=== PATIENT | male | born 1955 | race Caucasian/White ===

== ENCOUNTER 2017-10-04 11:00 | Inpatient (IN) | END 2017-10-12 16:00 | disposition home or self-care (01) | DRG 233 ==

== ENCOUNTER 2019-04-23 19:49 | Inpatient (IN) | payer MEDICARE, BC ==
[~2019-04-23] VITALS: Ht 177.8 cm; Wt 112.5 kg
[~2019-04-23 19:49] MED LIST: ALBU18HF INHALATION; AMIO200T4 PO; AMOX500C2 PO; ASPI-817 PO; ATOR-2 PO; AZIT250T PO; CARV25TA79 PO; CEPH500C PO; DOXA4TAB3 PO; FINA5TAB4 PO; FURO40TA4 PO; LOSA100T15 PO; LOSA25TA12 PO; POTA10TA37 PO; RIVA20TA5 PO; ROSU40TA35 PO; SPIR25TA PO; TORS10TA18 PO
[2019-04-23] MEDS ORDERED: SODIUM CHLORIDE 0.9% 1L BAG IV* STA (20:09)
[2019-04-23] MEDS ORDERED: CEFEPIME 2GM/50 ML (PMX) 50 ML IVPB STA (20:09)
[2019-04-23] MEDS ORDERED: VANCOMYCIN 1 GM (PMX) 250 ML IVPB ONE (20:30)
[2019-04-23] MEDS ORDERED: ACETAMINOPHEN 500 MG TAB PO STA (21:04)
[2019-04-23] MEDS ORDERED: IBUPROFEN 800 MG TAB PO ONE (21:30)
[2019-04-23] MEDS ORDERED: IPRATROPIUM (NEB) 0.5 MG/2.5 ML AMP INH STA (21:35)
[2019-04-23] MEDS ORDERED: ALBUTEROL 0.5% (NEB) 2.5 MG/0.5 ML AMP INH STA (21:35)
[2019-04-23] MEDS ORDERED: SOD CHLORIDE 0.9% 100 ML ONE (21:41)
[2019-04-23] MEDS ORDERED: IODIXANOL LOCM 100 ML BTL ONE (21:41)
[2019-04-23] MEDS ORDERED: FUROSEMIDE 40 MG INJ IV ONE (22:00)
[2019-04-23] MEDS ORDERED: ACETAMINOPHEN 325 MG TAB PO PRN ×2 (22:00→22:30)
[2019-04-23] MEDS ORDERED: ONDANSETRON 4 MG INJ IV PRN ×2 (22:00→22:30)
[2019-04-23] MEDS ORDERED: NACL 0.9% 3 ML SYG IV SCH (22:30)
[2019-04-23] MEDS ORDERED: DOCUSATE SODIUM 100 MG CAP PO PRN (22:30)
[2019-04-23] MEDS ORDERED: BISACODYL (EC) 5 MG TAB PO PRN (22:30)
[2019-04-23] MEDS ORDERED: ZOLPIDEM 5 MG TAB PO PRN (22:30)
[2019-04-23] MEDS ORDERED: NA PHOSPHATE/BIPHOS 133 ML ENEMA PR PRN (22:30)
[2019-04-23] MEDS ORDERED: ALBUTEROL HFA 8 GM INHALER INH PRN (22:30)
[2019-04-23] MEDS: AZITHROMYCIN 500MG/NS (PMX) 250 ML IV SCH (22:30)
[2019-04-24 00:05] VITALS: BP 130/78; PULSE 56; RESP 20; Ht 177.8 cm; Wt 112.5 kg
[2019-04-24] MEDS: CEFTRIAXONE 1 GM/50 ML (PMX) 50 ML IVPB SCH ×2 (02:15→22:28)
[2019-04-24 07:53] VITALS: BP 137/85; PULSE 50; RESP 19
[2019-04-24] MEDS: ASPIRIN (EC) 81 MG TAB PO SCH (08:16)
[2019-04-24] MEDS: POTASSIUM CHLORIDE (SR) 10 MEQ TAB PO SCH ×2 (08:17→22:27)
[2019-04-24] MEDS: FUROSEMIDE 40 MG INJ IV SCH ×3 (08:20→17:47)
[2019-04-24] MEDS: LOSARTAN 50 MG TAB PO SCH (08:20)
[2019-04-24] MEDS: SPIRONOLACTONE 25 MG TAB PO SCH (08:20)
[2019-04-24] MEDS: DOXAZOSIN 4 MG TAB PO SCH ×2 (08:20→22:26)
[2019-04-24] MEDS: ENOXAPARIN 40 MG/0.4 ML SYG SC SCH (08:49)
[2019-04-24 11:14] VITALS: BP 130/80; PULSE 52; RESP 19
[2019-04-24 15:33] VITALS: BP 156/85; PULSE 67; RESP 19
[2019-04-24] MEDS ORDERED: FOSFOMYCIN 3 GM PACKET PO ONE (17:00)
[2019-04-24] MEDS: FINASTERIDE 5 MG TAB PO SCH (17:47)
[2019-04-24 20:44] VITALS: BP 122/66; PULSE 66; RESP 18
[2019-04-24] MEDS: AZITHROMYCIN 500MG/NS (PMX) 250 ML IV SCH (22:27)
[2019-04-24] MEDS: ATORVASTATIN 80 MG TAB PO SCH (22:27)
[2019-04-25] VITALS (7 sets, daily range): BP systolic 120–155; BP diastolic 68–90; PULSE 52–75; RESP 18–20
[2019-04-25] MEDS: FUROSEMIDE 40 MG INJ IV SCH ×2 (06:31→17:12)
[2019-04-25] MEDS: SPIRONOLACTONE 25 MG TAB PO SCH (08:16)
[2019-04-25] MEDS: ASPIRIN (EC) 81 MG TAB PO SCH (08:16)
[2019-04-25] MEDS: POTASSIUM CHLORIDE (SR) 10 MEQ TAB PO SCH ×2 (08:17→21:17)
[2019-04-25] MEDS: DOXAZOSIN 4 MG TAB PO SCH ×2 (08:17→21:17)
[2019-04-25] MEDS: FINASTERIDE 5 MG TAB PO SCH (08:18)
[2019-04-25] MEDS: LOSARTAN 50 MG TAB PO SCH (08:18)
[2019-04-25] MEDS: ENOXAPARIN 40 MG/0.4 ML SYG SC SCH (08:27)
[2019-04-25] MEDS ORDERED: POTASSIUM CHLORIDE (SR) 20 MEQ TAB PO STA (09:07)
[2019-04-25] MEDS ORDERED: IOHEXOL 14.3 MG(I)/ML (ADULT) BTL PO ONE (11:00)
[2019-04-25] MEDS ORDERED: POTASSIUM CHLORIDE (SR) 20 MEQ TAB PO ONE (13:30)
[2019-04-25] MEDS: ATORVASTATIN 80 MG TAB PO SCH (21:18)
[2019-04-25] MEDS: AZITHROMYCIN 500MG/NS (PMX) 250 ML IV SCH (22:04)
[2019-04-25] MEDS: CEFTRIAXONE 1 GM/50 ML (PMX) 50 ML IVPB SCH (23:25)
[2019-04-26] MEDS: FUROSEMIDE 40 MG INJ IV SCH (05:36)
[2019-04-26 07:16] VITALS: BP 146/85; PULSE 55; RESP 18
[2019-04-26] MEDS: FINASTERIDE 5 MG TAB PO SCH (08:23)
[2019-04-26] MEDS: LOSARTAN 50 MG TAB PO SCH (08:23)
[2019-04-26] MEDS: ASPIRIN (EC) 81 MG TAB PO SCH (08:23)
[2019-04-26] MEDS: POTASSIUM CHLORIDE (SR) 10 MEQ TAB PO SCH (08:31)
[2019-04-26] MEDS: DOXAZOSIN 4 MG TAB PO SCH (08:32)
[2019-04-26] MEDS: SPIRONOLACTONE 25 MG TAB PO SCH (08:32)
[2019-04-26] MEDS: ENOXAPARIN 40 MG/0.4 ML SYG SC SCH (08:46)
[2019-04-26] MEDS ORDERED: POTASSIUM CHLORIDE (SR) 20 MEQ TAB PO STA (08:58)
== END 2019-04-26 11:25 | disposition home or self-care (01) | DRG 291 ==
LOC: E/R 19:49 → 6WM 21:59
PROVIDERS: ADMIT Internal Medicine; ATTEND Internal Medicine
DX: I11.0 Hypertensive heart disease with heart failure (principal); J18.9 Pneumonia, unspecified organism; N39.0 Urinary tract infection, site not specified; I50.41 Acute combined systolic (congestive) and diastolic (congestive) heart failure; I25.10 Atherosclerotic heart disease of native coronary artery without angina pectoris; Z95.1 Presence of aortocoronary bypass graft; E78.5 Hyperlipidemia, unspecified; E66.9 Obesity, unspecified; Z68.35 Body mass index [BMI] 35.0-35.9, adult; B96.20 Unspecified Escherichia coli [E. coli] as the cause of diseases classified elsewhere; N40.1 Benign prostatic hyperplasia with lower urinary tract symptoms; N39.43 Post-void dribbling; E87.6 Hypokalemia; E27.9 Disorder of adrenal gland, unspecified; E11.51 Type 2 diabetes mellitus with diabetic peripheral angiopathy without gangrene; Z79.4 Long term (current) use of insulin; N43.3 Hydrocele, unspecified; R16.0 Hepatomegaly, not elsewhere classified; D35.01 Benign neoplasm of right adrenal gland; I42.9 Cardiomyopathy, unspecified
CPT/HCPCS: 36415; 71045; 71275; 74176; 76604; 80048; 80053; 80061; 81001; 82150; 83036; 83605; 83690; 83735; 83880; 84145; 84484; 85025; 85610; 85730; 87086; 93005; 93306; 94644; 96374; 96375; J0456; J0692; J0696; J1650; J1940; J3370; J7030; Q9967